=== PATIENT | female | born 1950 | race Two or more races ===

== ENCOUNTER 2022-10-20 13:06 | Emergency (ER) | payer MEDICARE ==
[~2022-10-20] VITALS: Ht 167.6 cm; Wt 72.0 kg
[2022-10-20] MEDS ORDERED: ACETAMINOPHEN 325MG TABLET PO ONE (13:45)
[2022-10-20] MEDS ORDERED: IBUPROFEN 400MG TABLET PO ONE (13:45)
[2022-10-20 15:04] LABS: BASOPHILS % 0.6 % (0.0-2.0); CHLORIDE 108 mEq/L (98-107); HEMATOCRIT. 49.1 % (36.0-48.0); HEMOGLOBIN. 16.4 g/dL (12.0-16.0); LYMPHOCYTES % 19.5 % (20.0-50.0); MEAN CORPUSCULAR HEMOGLOBIN 31.7 pg (28.0-32.0); MEAN CORPUSCULAR VOLUME 94.6 fL (81.0-99.0); MONOCYTES % 5.7 % (2.0-8.0); NEUTROPHILS % 73.2 % (40.0-76.0); PLATELET 232 x1000/uL (130-400); RED BLOOD CELL COUNT 5.19 mill/uL (4.2-5.4); RED CELL DISTRIBUTION WIDTH 13.6 % (11.6-14.6)
[2022-10-20] MEDS ORDERED: ACETAMINOPHEN 325MG TABLET PO SCH (17:15)
[2022-10-20] MEDS ORDERED: IBUPROFEN 400MG TABLET PO SCH (17:15)
[2022-10-20] MEDS ORDERED: KETOROLAC 60MG/2ML VIAL IM ONE (18:00)
[2022-10-20] MEDS ORDERED: ACET-2708 MT (18:11)
[2022-10-20 18:12] VITALS: BP 162/98
== END 2022-10-20 18:29 | disposition home or self-care (01) ==
LOC: ER 13:06 → CANBEDREQ 23:00
DX: R07.9 Chest pain, unspecified (principal); M79.601 Pain in right arm; R51.9 Headache, unspecified; V49.9XXA Car occupant (driver) (passenger) injured in unspecified traffic accident, initial encounter; Y93.89 Activity, other specified; Y92.89 Other specified places as the place of occurrence of the external cause; Y99.8 Other external cause status
CPT/HCPCS: 36415; 70450; 71045; 72170; 76705; 80053; 84484; 85025; 93005; 96372; 99285; J1885